=== PATIENT | male | born 1965 | race Caucasian/White ===

== ENCOUNTER 2017-02-18 05:58 | Day surgery (SDC) | payer OTHER ==
--- NOTE | 2017-02-15 15:27 | SSS ---
CHIEF COMPLAINT: Need for screening colonoscopy. HISTORY OF PRESENT ILLNESS: Mr. Wisdom is a 51-year-old male who presented to my office just recently for routine followup. It was noted that he is do for a colonoscopy. He has had two colonoscopies by this physician in the past, once in June of 1999 where he had a hyperplastic polyp and then again in September of 2006 where he had 4 hyperplastic polyps removed. He presents now for repeat colonoscopy. He denies any symptoms referable this bowels, specifically no abdominal pain, changes in his bowel habits, constipation, diarrhea, or blood in the stool. PAST MEDICAL HISTORY: 1. Hyperlipidemia. 2. History of benign hyperplastic colonic polyps. 3. History of elevated liver function tests secondary to fatty liver disease. PAST SURGICAL HISTORY: 1. Laparoscopic cholecystectomy [place] [address] Price. 2. Colonoscopies as above. CURRENT MEDICATIONS: 1. Crestor. 2. Losartan/HCT. ALLERGIES: LIPITOR WHICH CAUSED MYALGIAS AND NIACIN WHICH CAUSED FLUSHING AND ELEVATED LIVER FUNCTION TESTS. FAMILY HISTORY: Father at 57 of some sort of throat cancer. Mother at 59 secondary to pancreatic cancer. He has one brother. He has a paternal grandfather who from pneumonia. Paternal grandmother had breast cancer and pancreatic cancer per him. SOCIAL HISTORY: He is computer engineer and works with computers. He is . He does not drink alcohol on a regular basis. He occasionally consumes wine. REVIEW OF SYSTEMS: Negative except as per history of present illness. PHYSICAL EXAMINATION: VITAL SIGNS: Height 5'10". Weight 280. Blood pressure 118/64. Pulse 72. GENERAL: He is awake, alert, and in no acute distress. HEENT: Unremarkable. NECK: Supple. CHEST: Lungs are clear. CARDIOVASCULAR: Regular rate and rhythm. ABDOMEN: Obese, but benign. RECTAL: Deferred until time of colonoscopy. EXTREMITIES: No edema. NEUROLOGIC: Nonfocal. ASSESSMENT: 1. Need for screening colonoscopy. PLAN: Colonoscopy on 02/18/17. #[id number] [facility]
[2017-02-18] MEDS ORDERED: LACTATED RINGERS 1,000 ML ONE (06:47)
[2017-02-18] MEDS ORDERED: PROPOFOL 200 MG/20 ML VIAL IV ONE (07:00)
--- NOTE | 2017-02-18 08:53 | OP ---
DATE OF PROCEDURE: 02/18/17 PREOPERATIVE DIAGNOSIS: 1. Need for screening colonoscopy. POSTOPERATIVE DIAGNOSIS: 1. Rare diverticula. 2. Five 0.25 x 0.25 cm rectal polyps, all biopsied to obliteration and submitted in the same container. PROCEDURE: 1. Colonoscopy. SURGEON: J Carlos Guillermo MD. ESTIMATED BLOOD LOSS: Less than 1 mL. COMPLICATIONS: No immediate complications. ANESTHESIA: Propofol 430 mg administered intravenously using monitored anesthesia care with King Weldon CRNA. TECHNIQUE: After informed consent was obtained from the patient, the patient was taken to the Endoscopy Suite and placed in the left lateral decubitus position. Incremental doses of Propofol were given until adequate conscious sedation was obtained. Digital rectal examination was performed. His prostate was small and quite high up. There were no nodules. Supplemental oxygen was administered throughout the procedure. Vital signs were monitored throughout the procedure. After digital rectal examination was performed, the colonoscope was then advanced into the patient's rectum and up through the sigmoid, descending, transverse and ascending colon to the level of the cecum. A little bit of looping was experienced right before reaching the cecum and the cecum was ultimately reached using gentle abdominal pressure. The usual cecal landmarks were identified. The terminal ileum was entered and photographed. The colonoscope was then slowly withdrawn. Overall, the bowel prep was quite good. There were a few small areas of liquid stool and this was suctioned out. I feel confident that no polyps over 0.5 cm were missed. There were a few rare scattered diverticula throughout the colon. No abnormalities were noted until until the rectal vault where several probably hyperplastic polyps were noted. Five of these were biopsied to obliteration and submitted in the same container. On retroflexion, no other abnormalities were noted other than some grade 1 internal hemorrhoids. Air was suctioned out of the patient's rectum. The colonoscope was removed from the patient. PLAN: The patient will followup in my office in 7 to 10 days to review the pathology. He will likely not need another colonoscopy for at least 5 years. #[id number] [facility]
[2017-02-18 09:16] VITALS: TEMP 97.1
[2017-02-18 09:17] VITALS: BP 148/94; O2SAT 97
== END 2017-02-18 09:05 | disposition home or self-care (01) ==
LOC: AMB 05:58
PROVIDERS: ATTEND Family Medicine
DX: Z12.11 Encounter for screening for malignant neoplasm of colon (principal); D12.5 Benign neoplasm of sigmoid colon; K57.30 Diverticulosis of large intestine without perforation or abscess without bleeding; I10 Essential (primary) hypertension; E78.5 Hyperlipidemia, unspecified; E66.9 Obesity, unspecified; Z87.891 Personal history of nicotine dependence; Z88.8 Allergy status to other drugs, medicaments and biological substances; Z79.899 Other long term (current) drug therapy
CPT/HCPCS: 00810; 45380; J3490; J7120

== ENCOUNTER → 2017-10-01 | Outpatient (CLI) | payer OTHER | LOC: GMAL 10:47 | PROVIDERS: ATTEND Family Medicine | DX: N41.0 Acute prostatitis (principal) ==